=== PATIENT | female | born 1965 | race Caucasian/White ===

== ENCOUNTER → 2017-08-18 12:10 | Inpatient (IN) | payer OTHER ==
[2017-08-15 16:30] VITALS: BP 103/58
[2017-08-15 16:31] LABS: BASOPHILS % (AUTO) 0.5 % (0.0-5.0); EOSINOPHILS % (AUTO) 4.4 % (0.0-8.0); HEMATOCRIT 30.4 % (36-48); LYMPHOCYTES % (AUTO) 15.2 % (21.0-51.0); MEAN CORPUSCULAR HEMOGLOBIN 30.3 pg (27.0-33.0); MEAN CORPUSCULAR HGB CONC 33.3 g/dL (32.0-36.0); MEAN CORPUSCULAR VOLUME 90.8 fL (79-99); MONOCYTES % (AUTO) 5.6 % (3.0-13.0); NEUTROPHILS % (AUTO) 74.3 % (40.0-77.0); PLATELET COUNT (AUTO) 269 K/uL (130-400); RED BLOOD CELL COUNT(AUTO) 3.34 MIL/uL (4.00-5.50); RED CELL DISTRIBUTION WIDTH 13.8 % (11.0-15.5)
[2017-08-16] VITALS (19 sets, daily range): BP systolic 83–111; BP diastolic 43–72
[2017-08-16] MEDS: CEFAZOLIN SODIUM 1 GM VIAL IVP SCH ×3 (12:00→21:51)
[2017-08-16] MEDS: LIDOCAINE 5% TOPICAL PATCH TP SCH (18:40)
[2017-08-16] MEDS: CALDOLOR 800MG+NS 250ML 250 ML IVPB SCH (22:20)
[2017-08-17 03:46] VITALS: BP 103/54
[2017-08-17] MEDS: CEFAZOLIN SODIUM 1 GM VIAL IVP SCH (05:58)
[2017-08-17] MEDS: CALDOLOR 800MG+NS 250ML 250 ML IVPB SCH (06:22)
[2017-08-17 07:11] LABS: BASOPHILS % (AUTO) 0.1 % (0.0-5.0); LYMPHOCYTES % (AUTO) 6.8 % (21.0-51.0); MEAN CORPUSCULAR HGB CONC 33.6 g/dL (32.0-36.0); MEAN CORPUSCULAR VOLUME 89.5 fL (79-99); MONOCYTES % (AUTO) 8.1 % (3.0-13.0); NUCLEATED RED BLOOD CELLS 0.1 % (0.0-0.19); PLATELET COUNT (AUTO) 201 K/uL (130-400); RED BLOOD CELL COUNT(AUTO) 3.24 MIL/uL (4.00-5.50); RED CELL DISTRIBUTION WIDTH 14.8 % (11.0-15.5); WHITE BLOOD COUNT (AUTO) 10.1 K/uL (4.8-10.8)
[2017-08-17 07:50] VITALS: BP 99/58
[2017-08-17] MEDS: LIDOCAINE 5% TOPICAL PATCH TP SCH ×2 (09:00→21:45)
[2017-08-17] MEDS: DOCUSATE SODIUM 100 MG CAP PO PRN ×2 (10:25→21:45)
[2017-08-17] MEDS: SIMETHICONE 80 MG TAB.CHEW PO PRN ×2 (10:25→21:45)
[2017-08-17 11:58] VITALS: BP 98/60
[2017-08-17] MEDS: ACETAMINOPHEN-CODEINE 300/30MG TAB PO PRN ×2 (14:14→19:21)
[2017-08-17] MEDS: IBUPROFEN 800 MG TAB PO SCH ×2 (15:15→22:53)
[2017-08-17 15:21] VITALS: BP 101/62
[2017-08-17 19:55] VITALS: BP 105/57
[2017-08-17 23:26] VITALS: BP 94/59
[~2017-08-18] VITALS: Ht 165.1 cm; Wt 71.5 kg
[2017-08-18 03:28] VITALS: BP 98/50
[2017-08-18] MEDS: ACETAMINOPHEN-CODEINE 300/30MG TAB PO PRN ×2 (03:28→08:56)
[2017-08-18 07:49] VITALS: BP 104/59
[2017-08-18] MEDS: DOCUSATE SODIUM 100 MG CAP PO PRN (08:51)
[~2017-08-18 12:10] MED LIST: ACET1TAB12 PO; BISACODYL 10 MG SUPP.RECT RC PRN; CALDOLOR 800MG+NS 250ML 250 ML IV ONE; CALDOLOR 800MG+NS 250ML 250 ML IV SCH; CEFAZOLIN 2GM / 50 ML 50 ML IV SCH; DEXTROSE 5 %-0.45 % NACL 1,000 ML IV PRN; DOCU240C25 PO; DiphenhydrAMINE HCL 50 MG/ML VIAL IV PRN; ENOXAPARIN SODIUM 40 MG/0.4 ML SYRINGE SQ SCH; FENTANYL CITRATE PF 50 MCG/1 ML 5ML AMP IV ONE; FERR240T6 PO; FOLI1TAB15 PO; LACTATED RINGERS 1000ML 1,000 ML IV SCH; LIDOCAINE HCL-MPF 1% 5ML AMP IJ ONE; MEPERIDINE 10MG/ML 50ML PCA 50 ML IV PRN; METOCLOPRAMIDE 10 MG/2 ML VIAL IV PRN; MO8B PO; NALOXONE HCL 0.4 MG/1 ML ML IVP PRN; ONDANSETRON HCL 4 MG/2 ML VIAL IV PRN; PHENYLEPHRINE HCL 10 MG/ML 1ML VIAL IV ONE; PROMETHAZINE HCL 25 MG/ML 1ML AMPULE IM PRN; ROPIVACAINE 0.5% 5MG/ML 30ML IJ ONE; SODIUM CHLORIDE 0.9% 1000ML 1,000 ML IV SCH; VECURONIUM BROMIDE 10 MG ML IV ONE
== END | disposition home or self-care (01) | DRG 743 ==
LOC: DAHIP 08-16 11:46 → EDSTATUS 08-16 13:45 → WSH 08-16 16:55
PROC: 30233N1 Transfusion of Nonautologous Red Blood Cells into Peripheral Vein, Percutaneous Approach (ICD-10-PCS; 2017-08-16)
PROC: 0UT90ZZ Resection of Uterus, Open Approach (ICD-10-PCS; principal; 2017-08-16 12:53)
PROC: 0DNU0ZZ Release Omentum, Open Approach (ICD-10-PCS; 2017-08-16 12:53)
DX: D25.9 Leiomyoma of uterus, unspecified (principal); D50.0 Iron deficiency anemia secondary to blood loss (chronic); N73.6 Female pelvic peritoneal adhesions (postinfective); N92.0 Excessive and frequent menstruation with regular cycle
CPT/HCPCS: 36415; 84703; 85025; 86850; 86900; 86901; 86922; 88307; 96365; A4218; A4344; J0690; J1650; J1741; J2175; J2370; J2405; J2795; J3010; J3490; J7030; J7120; P9016